=== PATIENT | male | born 1965 | race Caucasian/White ===

== ENCOUNTER 2018-11-23 11:41 | Emergency (ER) | payer OTHER ==
[2018-11-23 11:57] VITALS: BP 153/95
--- NOTE | 2018-11-23 12:07 | UC ---
UC General HPI - HPI Summary HPI Summary: about 5 days ago, pt noted discomfort in R hand c/w RA but then it went into his forearm as well. last pm, pt noted his forearm to be red and swollen plus now has worsening. chronic scab from an old would over the elbow is tender as well. no fever or hx mrsa. notes difficult to fully bend and straighten his elbow due to pain. + hx RA, not tx'ed and gout. - History of Current Complaint Chief Complaint: UCUpperExtremity Stated Complaint: RT ARM COMP/SWELLING Time Seen by Provider: 11/23/18 11:58 Hx Obtained From: Patient Onset/Duration: Gradual Onset Timing: Constant Pain Intensity: 1 Associated Signs & Symptoms: Positive: Edema. Negative: Fever - Allergy/Home Medications Allergies/Adverse Reactions: Allergies Allergy/AdvReac Type Severity Reaction Status Date / Time No Known Allergies Allergy Verified 11/23/18 11:52 Home Medications: Home Medications Colchicine* [Colcrys*] 0.6 mg PO DAILY PRN 11/23/18 [History Confirmed 11/23/18] Ibuprofen TAB* [Advil TAB*] 600 mg PO Q6H PRN 11/23/18 [History Confirmed ] PMH/Surg Hx/FS Hx/Imm Hx - Additional Past Medical History Additional PMH: Gout, RA - Surgical History Surgical History: None - Family History Known Family History: Positive: Non-Contributory - Social History Alcohol Use: Rare Substance Use Type: None Smoking Status (MU): Never Smoked Tobacco Review of Systems All Other Systems Reviewed And Are Negative: Yes Skin: Positive: Rash Musculoskeletal: Positive: Arthralgia, Edema Physical Exam Triage Information Reviewed: Yes Appearance: Well-Appearing Vital Signs: Initial Vital Signs Temp 97.7 F 11/23/18 11:53 Pulse 82 11/23/18 11:53 Resp 16 11/23/18 11:53 BP 153/95 11/23/18 11:53 Pulse Ox 96 11/23/18 11:53 Vital Signs Reviewed: Yes Eyes: Positive: Conjunctiva Clear Neck: Positive: Supple Respiratory: Positive: Lungs clear, Normal breath sounds Cardiovascular: Positive: RRR, No Murmur Abdomen Description: Positive: Nontender Bowel Sounds: Positive: Present Musculoskeletal: Positive: Other: - RUE: swan neck defomrity to some of fingers. moderate erythema in base of 5th metacarpal that extends into the forearm(almost circumfrential) and involves dorsal elbow. moderate swelling of forearm to dorsal elbow. Dorsal elbow area has a central scab(chronic) plus area is boggy, pitting and tender to palpation. the hand, wrist and shoulder have gross s/v/m function; however, elbow rom on full flexion and extension is limited with pt c/o pain. supination is intact. Neurological: Positive: Alert Psychological: Positive: Age Appropriate Behavior Skin Exam: Normal Course/Dx - Course Course Of Treatment: [facility] ER called. I gave report to Dr Albarran. I have advised of near circumferential cellulitis, septic bursitis vs abscess and possible early septic joint given some limitation in ROM. Pt agrees to the ER transfer plus case was d/w Dr Stroud who briefly examined pt's RUE as well. He agreed with transfer plan. - Differential Dx - Multi-Symptom Differential Diagnoses: Other - no concern for fx but is c/w cellulitis, septic bursitis and / or abscess and possible early septic joint. - Diagnoses Provider Diagnosis: Cellulitis, Septic bursitis of elbow Discharge - Sign-Out/Discharge Documenting (check all that apply): Patient Departure All imaging exams completed and their final reports reviewed: No Studies - Discharge Plan Condition: Stable Disposition: TRANS HIGHER LVL OF CARE FAC Referrals: No Primary Care Phys,NOPCP [Primary Care Provider] - Additional Instructions: LEAVE HERE AND GO DIRECTLY TO THE [facility] DISCUSSED. - Billing Disposition and Condition Condition: STABLE Disposition: Trans Higher Lvl of Care Fac - Attestation Statements Provider Attestation: The patient was presented to and examined by me. Brief right upper extremity examination: Limited range of motion at elbow, swelling/erythema noted at the olecranon area of the right elbow. I agree with plan. -Marco Antonio Stroud MD
== END 2018-11-23 12:21 | disposition short-term general hospital (02) ==
LOC: UCCORT 11:41
DX: L03.113 Cellulitis of right upper limb (principal); M71.521 Other bursitis, not elsewhere classified, right elbow
CPT/HCPCS: 99202; G0463